=== PATIENT | female | born 1965 | race Caucasian/White ===

== ENCOUNTER → 2021-05-19 03:23 | Outpatient (CLI) | payer MEDICARE, OTHER, SELFPAY ==
[2021-05-19 19:41] LABS: SARS-CoV-2 RNA PCR Negative
== END ==
PROVIDERS: PCP Internal Medicine; Visit Provider Internal Medicine Gastroenterology
DX: Z01.812 Encounter for preprocedural laboratory examination (principal); Z20.822 Contact with and (suspected) exposure to COVID-19
CPT/HCPCS: C9803; U0003; U0005

== ENCOUNTER 2021-05-22 03:33 | Day surgery (SDC) | payer MEDICARE, OTHER, SELFPAY ==
[2021-05-14 15:18] VITALS: BMI 46.0
[2021-05-22 11:44] VITALS: BP 126/80; PULSE 72; RESP 20; TEMP 36.6; O2SAT 100; BMI 43.6
--- NOTE | 2021-05-22 11:51 | WPDANESEPPF ---
Anes - Initial Pre Proc Eval Procedure: Operation Date: 05/22/21 12:30 Proposed Procedures p Screening Colonoscopy - Zaki Reese MD Date/Time: 05/22/21 11:51 Surgeon: Zaki Reese MD Pre Op Diagnosis: hx of colon polyps Patient Data Age: 56 Gender: F Height: 1.6 m Weight: 111.7 kg Last Vital Signs Temp 97.8 F 05/22/21 11:44 Pulse 72 05/22/21 11:44 Resp 20 05/22/21 11:44 BP 126/80 05/22/21 11:44 Pulse Ox 100 05/22/21 11:44 Allergies Allergy/AdvReac Type Severity Reaction Status Date / Time AVALOX Allergy Severe HIVES IN Uncoded 05/22/21 11:43 MOUTH POWDER INSIDE OF GLOVES, Allergy Unknown Other Uncoded 05/22/21 11:43 BUT IT ISN'T A LATEX ALLERGY ADHESIVE TAPE Allergy Unknown BLISTERS Uncoded 05/22/21 11:43 AFTER BEING ON FOR PROLONGED TIME Home Medications Medication Instructions Recorded Confirmed Type Blm 1 tablet PO DAILY 05/14/21 05/14/21 History albuterol sulfate 1 inh INHALATION Q4-6H PRN 05/14/21 05/14/21 History ascorbic acid (vitamin C) [Super C] 500 mg PO DAILY 05/14/21 05/14/21 History atorvastatin 20 mg PO DAILY 05/14/21 05/14/21 History calcium carb-vit [id number]-sod 1 tablet PO DAILY 05/14/21 05/14/21 History cholecalciferol (vitamin D3) 25 mcg PO DAILY 05/14/21 05/14/21 History [Vitamin D3] ibuprofen [IBU] 800 mg PO DAILY PRN 05/14/21 05/14/21 History iron-vitamin B complex with C 1 tablet PO DAILY 05/14/21 05/14/21 History [Super B Complex] lorazepam 1 mg PO DAILY PRN 05/14/21 05/14/21 History [id number] fum-folic ac-om3 1 pkg PO DAILY 05/14/21 05/14/21 History [Daily ] Patient hx anesthesia problems: none Family hx anesthesia problems: none PMFSH Social History Social History Smoking status: Never smoker Living arrangements: alone Spiritual care concerns: No Anes - Eval Final PreProcedure Day of Procedure 05/22/21 11:51 Patient weight: morbidly obese Heart: regular rate and rhythm Lungs: clear to auscultation Airway: Mallampati scale class III Neurological: alert and oriented Last oral intake: >/= 8 hours ASA classification: III Emergent: no Anesthetic plan: proceed Anesthesia type and monitoring: general GIVS and standard monitoring Informed Consent: The patient's anesthetic plan and its attendant risks and benefits were discussed with the patient/family/POA. Questions were solicited and answers provided to the satisfaction of the patient/family/POA.
[2021-05-22] MEDS: LACTATED RINGERS 1,000 ML 150 ML IV CONT (11:58)
--- NOTE | 2021-05-22 12:24 | PM.HPGS ---
History of Present Illness History of Present Illness Consent: Risks, benefits, and alternatives have been discussed and questions answered. Patient agrees to proceed with procedure. Chief complaint: hx of colon polyps Narrative: Chelly Mcmullen is a 56 year old female Here for colon cancer screening. She has a history of polyps and a strong family history of colon cancer Review of Systems Review of Systems: All systems reviewed & are unremarkable except as noted in HPI and below PMFSH Social History Social History Smoking status: Never smoker Living arrangements: alone Spiritual care concerns: No Meds Home Medications and Allergies Home Medications Medication Instructions Recorded Confirmed Type Blm 1 tablet PO DAILY 05/14/21 05/14/21 History albuterol sulfate 1 inh INHALATION Q4-6H PRN 05/14/21 05/14/21 History ascorbic acid (vitamin C) [Super C] 500 mg PO DAILY 05/14/21 05/14/21 History atorvastatin 20 mg PO DAILY 05/14/21 05/14/21 History calcium carb-vit [id number]-K-sod 1 tablet PO DAILY 05/14/21 05/14/21 History cholecalciferol (vitamin D3) 25 mcg PO DAILY 05/14/21 05/14/21 History [Vitamin D3] ibuprofen [IBU] 800 mg PO DAILY PRN 05/14/21 05/14/21 History iron-vitamin B complex with C 1 tablet PO DAILY 05/14/21 05/14/21 History [Super B Complex] lorazepam 1 mg PO DAILY PRN 05/14/21 05/14/21 History [id number] fum-folic ac-om3 1 pkg PO DAILY 05/14/21 05/14/21 History [Daily ] Allergies Allergy/AdvReac Type Severity Reaction Status Date / Time AVALOX Allergy Severe HIVES IN Uncoded 05/22/21 11:43 MOUTH POWDER INSIDE OF GLOVES, Allergy Unknown Other Uncoded 05/22/21 11:43 BUT IT ISN'T A LATEX ALLERGY ADHESIVE TAPE Allergy Unknown BLISTERS Uncoded 05/22/21 11:43 AFTER BEING ON FOR PROLONGED TIME Vital Signs Vital Signs - 24 hr 05/22/21 11:44 Temperature 36.6 C Pulse Rate 72 Respiratory Rate 20 Blood Pressure 126/80 Pulse Oximetry 100 Exam Resp: Auscultation: clear to auscultation bilaterally Cardio: Rate: regular rate Rhythm: regular rhythm GI: GI Palp: Yes Soft to palpation and No Tenderness to palpation present (GI) Assessment and Plan Assessment and plan (1) Colon cancer screening: Code(s): Z12.11 - Encounter for screening for malignant neoplasm of colon Status: Acute Assessment and Plan: Colonoscopy with possible biopsy or polypectomy or cautery or injection of substances.
[2021-05-22 12:44] VITALS: BP 112/64; PULSE 72; RESP 16; O2SAT 100
[2021-05-22 12:54] VITALS: BP 109/78; PULSE 69; RESP 16; O2SAT 100
[2021-05-22 13:04] VITALS: BP 118/94; PULSE 58; RESP 23; O2SAT 100
== END 2021-05-22 13:30 | disposition home or self-care (01) ==
PROVIDERS: PCP Internal Medicine; Visit Provider Internal Medicine Gastroenterology
PROC: 0DJD8ZZ Inspection of Lower Intestinal Tract, Via Natural or Artificial Opening Endoscopic (ICD-10-PCS; CPT 45378; principal; 2021-05-22 12:30)
DX: Z12.11 Encounter for screening for malignant neoplasm of colon (principal); K62.1 Rectal polyp; K57.30 Diverticulosis of large intestine without perforation or abscess without bleeding; K63.5 Polyp of colon; Z80.0 Family history of malignant neoplasm of digestive organs
CPT/HCPCS: 45385; 45380; 88305; J2001; J2704; J7120

== ENCOUNTER 2022-06-09 13:58 | Outpatient (CLI) | payer MEDICARE, OTHER, SELFPAY ==
--- NOTE | ~2022-06-09 | CT_ITS ---
EXAMINATION: CT brain wo/w con DATE: 06/09/2022 14:39 INDICATION: Left-sided headache. Dizziness. Squamous cell carcinoma. TECHNIQUE: Computed tomography (CT) of the head was performed without and with 100 mL Omnipaque 350 i ntravenous contrast. The mA was adjusted according to patient size. Iterative reconstruction techniqu e was employed. The dose-length product was 1210.66 mGy-cm. COMPARISON: None FINDINGS: There is no intracranial hemorrhage, acute infarction, or abnormal intracranial mass lesion . The ventricles are normal in size. There is mild mucosal thickening in the paranasal sinuses. The o rbits are normal. There are changes of right mastoidectomy. IMPRESSION: 1. Normal brain. Reviewed, dictated and finalized at location A. IMPRESSION: 1. Normal brain.
--- NOTE | ~2022-06-09 | CT_ITS ---
EXAMINATION: CT soft tissue neck w con DATE: 06/09/2022 14:39 INDICATION: Squamous cell carcinoma. Right neck pain. TECHNIQUE: Computed tomography (CT) of the neck was performed with 100 mL Omnipaque-350 intravenous c ontrast. Automated exposure control and iterative reconstruction technique were employed. The dose-le ngth product was 560.51 mGy-cm. COMPARISON: None FINDINGS: There are no pathologically enlarged lymph nodes. There is mild plaque in proximal left int ernal carotid artery with 0% stenosis relative to normal distal artery lumen diameter. The pharynx an d larynx are unremarkable. There is mild mucosal thickening in the paranasal sinuses. There are lazo es of right mastoidectomy. There is severe cervical spondylosis. There are changes of anterior fusion procedure at C6-C7. IMPRESSION: 1. No evidence of malignancy. Reviewed, dictated and finalized at location A.
== END 2022-06-09 13:59 | disposition home or self-care (01) ==
PROVIDERS: PCP Internal Medicine
DX: C44.320 Squamous cell carcinoma of skin of unspecified parts of face (principal)
CPT/HCPCS: 70470; 70491; Q9967

== ENCOUNTER 2022-07-26 07:51 | Outpatient (CLI) | payer MEDICARE, OTHER, SELFPAY ==
--- NOTE | ~2022-07-26 | DEXA_ITS ---
Bone Density Report Name: LIZETH GALVEZ Age: 57 Sex: Female Ethnicity: White Date of : 1965 Indication: postmenopausal; screening for osteoporosis; height loss; prior fracture; cancer; asthma or emphysema; Referring Provider: BERNADETTE, GRETEL Jennings Study: Bone densitometry was performed. Exam Date: July 26, 2022 Accession number: [id number] Bone Density: Region BMD T-score Z-score Classification AP Spine(L1-L4) 0.993 -0.5 0.7 Normal Femoral Neck (Left) 0.798 -0.5 0.7 Normal Total Hip (Left) 0.907 -0.3 0.5 Normal Femoral Neck (Right) 0.775 -0.7 0.5 Normal Total Hip (Right) 0.910 -0.3 0.5 Normal Total Hip Mean 0.908 -0.3 0.5 Normal World Health Organization criteria for BMD impression classify patients as: Normal (T-score at or above -1.0), Osteopenia (T-score between -1.0 and -2.5), or Osteoporosis (T-score at or below -2.5). 10-year Fracture Risk: FRAX not reported because: All T-scores for Spine Total, Hip Total, Femoral Neck at or above -1.0 Clinical Information Provided by Patient: Has had a low trauma fracture Has used the following medications: Vitamin D, Calcium Has the following medical conditions: Asthma or Emphysema, Cancer Patient maximum height was 64 Menopause Age: 55 No regular weight bearing exercise Does not regularly consume dairy products Onset of menses at age 15 Number of children 1 Impression: The patient has normal bone mass. The patient has risk factors, including: previous fracture. Discussion: BONE DENSITY IS ABOVE THE MINIMUM DESIRABLE LEVEL AT ALL SKELETAL SITES TESTED. This patient?s bone mineral density is above the minimum desirable level (T-score -1.0 or better) at all sites measured. The patient should follow a healthful lifestyle (good nutrition with adequate calcium and vitamin D, and appropriate weight-bearing exercise). Follow-Up: Consider repeating this study in 5 years or sooner if there is some new clinical indication. Reported by: BECKIE on 07/26/2022 8:25:00 AM. Reviewed, dictated and finalized at location [facility]
--- NOTE | ~2022-07-26 | MM_ITS ---
EXAMINATION: MM screening juan ramon BI w suzi HISTORY: Screening TECHNIQUE: Craniocaudal and mediolateral oblique 3-D tomosynthesis images were obtained and synthetic 2-D images were generated. CAD analysis was submitted and interpreted. COMPARISON: No prior mammogram is available for comparison at this institution. BREAST PARENCHYMAL COMPOSITION: There are scattered areas of fibroglandular density. FINDINGS: There are focal asymmetries in the upper outer quadrant of the right breast. There is no ma mmographic evidence for malignancy in the left breast IMPRESSION: 1. Focal right breast asymmetries, upper outer quadrant, middle third. 2. Additional mammographic views and possible breast ultrasound are recommended. BI-RADS Category 0: Incomplete: Needs additional imaging evaluation. Reviewed, dictated and finalized at location A. IMPRESSION: 1. Focal right breast asymmetries, upper outer quadrant, middle third. 2. Additional mammographic views and possible breast ultrasound are recommended . BI-RADS Category 0: Incomplete: Needs additional imaging evaluation.
== END 2022-07-26 07:52 | disposition home or self-care (01) ==
LOC: ANHIMG 07:52
PROVIDERS: PCP Internal Medicine; Visit Provider Internal Medicine
DX: Z12.31 Encounter for screening mammogram for malignant neoplasm of breast (principal); M81.0 Age-related osteoporosis without current pathological fracture; R92.8 Other abnormal and inconclusive findings on diagnostic imaging of breast
CPT/HCPCS: 77063; 77067; 77080

== ENCOUNTER 2022-08-09 13:58 | Outpatient (CLI) | payer MEDICARE, OTHER, SELFPAY ==
--- NOTE | ~2022-08-09 | MMUS_ITS ---
EXAMINATION: MM diagnostic juan ramon RT w suzi, US breast RT limited HISTORY: Follow-up right breast mass TECHNIQUE: Additional 3-D tomosynthesis images of the right breast were performed and synthetic 2-D i mages were generated. CAD analysis was submitted and interpreted. High resolution Limited right breas t ultrasound was performed. COMPARISON: Comparison to multiple prior studies sequentially, with oldest reviewed study dated 01/16. BREAST PARENCHYMAL COMPOSITION: Breast composed of scattered areas of fibroglandular density FINDINGS: MAMMOGRAPHIC FINDINGS: There is a focal mass in the upper outer quadrant of the right breast, anterior third. There are no s uspicious calcifications or architectural distortion. ULTRASOUND: Limited right breast ultrasound: At 10:00, 5 cm from the nipple, there is a circumscribed parallel or iented oval hypoechoic mass without significant posterior features measuring 11 x 10 x 4 mm, likely b enign. At 12:00, 3 cm from the nipple, there is an irregular shaped predominantly hypoechoic mass wit h parallel orientation, posterior acoustic shadowing and no internal vascularity measuring 10 x 7 x 6 mm. IMPRESSION: 1. Irregular shaped 10 mm right breast mass with posterior shadowing at 12:00, 3 cm from the nipple. 2. Ultrasound-guided right breast biopsy recommended. BI-RADS category 3, probably benign findings. Reviewed, dictated and finalized at location A. RUNNER IMPRESSION: 1. Irregular shaped 10 mm right breast mass with posterior shadowing at 12:00, 3 cm from the nipple. 2. Ultrasound-guided right breast biopsy recommended. BI-RADS category 3, probably benign findings.
== END 2022-08-09 13:59 | disposition home or self-care (01) ==
LOC: ANHIMG 14:00
PROVIDERS: PCP Internal Medicine; Visit Provider Internal Medicine
DX: R92.8 Other abnormal and inconclusive findings on diagnostic imaging of breast (principal)
CPT/HCPCS: 76642; 77061; 77065; G0279

== ENCOUNTER 2022-11-11 10:42 | Outpatient (CLI) | payer MEDICARE, OTHER, SELFPAY ==
--- NOTE | ~2022-11-11 | US_ITS ---
EXAMINATION: US venous doppler [facility] DATE: 11/11/2022 12:15 INDICATION: Bilateral lower limb pain and swelling TECHNIQUE: Grayscale ultrasound images without and with compression and Doppler ultrasound images of the bilateral lower extremity veins were obtained. COMPARISON: None. FINDINGS: The visualized portions of right common femoral vein, profunda (deep) femoral vein, femoral vein, pop liteal vein, posterior tibial veins, peroneal veins, gastrocnemius vein and greater saphenous vein ou tflow are patent. The visualized portions of left common femoral vein, profunda femoral vein, femoral vein, popliteal v ein, posterior tibial veins, peroneal veins, gastrocnemius vein and greater saphenous vein outflow ar e patent. IMPRESSION: 1. No deep venous thrombosis in either lower limb. Reviewed, dictated and finalized at location A. 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
== END 2022-11-11 10:43 | disposition home or self-care (01) ==
PROVIDERS: PCP Internal Medicine; Visit Provider Internal Medicine
DX: M79.89 Other specified soft tissue disorders (principal)
CPT/HCPCS: 93970

== ENCOUNTER 2023-10-12 10:44 | Outpatient (CLI) | payer BC, MEDICARE, SELFPAY | END 2023-10-12 10:45 | disposition home or self-care (01) | LOC: ANHGOSHLAB 10:46 | PROVIDERS: PCP Internal Medicine; Visit Provider Otolaryngology | DX: E03.9 Hypothyroidism, unspecified (principal) | CPT/HCPCS: 36415; 84443 ==

== ENCOUNTER 2023-11-24 11:49 | Outpatient (CLI) | payer BC, MEDICARE, SELFPAY ==
[2023-11-24 16:03] LABS: Alanine Aminotransferase 21 U/L (6-35); Albumin Level 4.6 g/dL (3.5-5.1); Alkaline Phosphatase 88 U/L (38-126); Anion Gap 7 mmol/L (8-16); Aspartate Amino Transferase 46 U/L (14-36); Blood Urea Nitrogen 17 mg/dL (7-17); Calcium 9.9 mg/dL (8.4-10.2); Carbon Dioxide 28 mmol/L (22-30); Chloride 101 mmol/L (98-107); Cholesterol 296 mg/dL (0-200); Estimated Glomerular Filt Rate > 60; Glucose 83 mg/dL (65-110); HDL Direct 65 mg/dL; Potassium 3.7 mmol/L (3.4-5.0); Sodium 136 mmol/L (137-145); Triglycerides 189 mg/dL (<150)
[2023-11-24 16:14] LABS: LDL Cholesterol Direct 165 mg/dL
[2023-11-24 16:16] LABS: Free T4 Free Thyroxine 1.08 ng/mL (0.78-2.19)
[2023-11-24 16:19] LABS: Immunoglobulin A 188 mg/dL (70-400); Immunoglobulin G 945 mg/dL (700-1600); Immunoglobulin M 62 mg/dL (40-230)
[2023-11-24 16:20] LABS: Basophils Percent Auto 0.4 % (0.2-1.2); Eosinophils Absolute Auto 0.1 K/mm3 (0-0.3); Eosinophils Percent Auto 1.2 % (0-4.4); Hematocrit 45.5 % (37.0-47.0); Hemoglobin 15.1 g/dL (12.0-15.0); Immature Granulocyte Absolute 0.01 K/mm3 (0.00-0.031); Immature Granulocyte Percent A 0.2 % (0-0.5); Lymphocytes Absolute Auto 1.88 K/mm3 (0.9-3.2); Mean Corpuscular HGB Conc 33.2 g/dl (32-36); Mean Corpuscular Hemoglobin 31.1 pg (26-34); Mean Corpuscular Volume 93.8 fl (80-100); Mean Platelet Volume 10.3 fl (7.4-10.4); Monocytes Absolute Auto 0.3 K/mm3 (0.1-0.6); Monocytes Percent Auto 6.2 % (2.6-8.5); Neutrophils Absolute Auto 2.6 K/mm3 (1.3-6.7); Platelet Count Result 390 k/mm3 (150-375); Red Blood Count 4.85 M/mm3 (4.2-5.4); Red Cell Distribution Width 12.7 % (11.5-14.5); White Blood Count 4.8 K/mm3 (4.5-10.0)
[2023-11-26 21:49] LABS: Immunoglobulin G, Serum 871 mg/dL (600-1640); Immunoglobulin G1 579 mg/dL (382-929); Immunoglobulin G2 228 mg/dL (241-700); Immunoglobulin G3 61 mg/dL (22-178); Immunoglobulin G4 12.1 mg/dL (4.0-86.0)
== END 2023-11-24 11:50 | disposition home or self-care (01) ==
LOC: ANHGOSHLAB 11:52
PROVIDERS: PCP Internal Medicine; Visit Provider Allergy & Immunology
DX: E78.00 Pure hypercholesterolemia, unspecified (principal); D84.9 Immunodeficiency, unspecified
CPT/HCPCS: 36415; 80053; 80061; 82784; 82787; 84439; 84443; 85025; 86648; 86774

== ENCOUNTER 2024-08-14 10:08 | Outpatient (CLI) | payer MEDICARE, BC, SELFPAY ==
--- NOTE | ~2024-08-14 | US_ITS ---
US pelvic complete w TV Ordering provider: Steven Zuniga, DAENDRA History: . pelvic and perineal Pain . Comparison: None. Technique: Transabdominal and endovaginal ultrasound of the pelvis (Doppler ultrasound interrogation techniques used as needed for this exam.) FINDINGS: CERVIX: Normal. UTERUS: Measures 7.6x 3.6 cm in length which is within normal limits and is anteverted. Fibroid is s een anteriorly measuring 2.2 x 2 x 1.6 cm. Fluid is seen in the cervix and lower segment of the uteru s.. ENDOMETRIUM: Normal in thickness measuring 4 mm. No endometrial masses, cysts or fluid. CUL DE SAC: No free fluid. RIGHT OVARY: Not seen. LEFT OVARY: Not seen. ADNEXA: Normal. No mass. IMPRESSION: Uterine fibroid. Otherwise, normal pelvic ultrasound. Reviewed, dictated and finalized at location A. 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
== END 2024-08-14 10:09 | disposition home or self-care (01) ==
PROVIDERS: PCP Physician Assistant; Visit Provider Physician Assistant
DX: R10.2 Pelvic and perineal pain (principal); D25.9 Leiomyoma of uterus, unspecified
CPT/HCPCS: 76830; 76856